=== PATIENT | male | born 1975 | race Caucasian/White ===

== ENCOUNTER 2020-04-19 18:23 | Inpatient (IN) | payer OTHER, SELFPAY ==
[~2020-04-19] VITALS: Ht 170.2 cm; Wt 106.9 kg
[2020-04-19] MEDS ORDERED: ZOSYN 3.375GM+NS 50ML 50 ML IV ONE (19:10)
[2020-04-19] MEDS ORDERED: TETANUS/DIPHTHERIA TOXOID [ADULT] 0.5 ML VIAL IM ONE (19:11)
[2020-04-19 19:16] LABS: BASOPHILS % (AUTO) 0.3 % (0.0-5.0); HEMATOCRIT 35.7 % (42-54); LYMPHOCYTES % (AUTO) 11.3 % (21.0-51.0); MEAN CORPUSCULAR HEMOGLOBIN 27.7 pg (27.0-33.0); MEAN CORPUSCULAR HGB CONC 33.6 g/dL (32.0-36.0); MEAN CORPUSCULAR VOLUME 82.4 fL (79-99); MONOCYTES % (AUTO) 10.4 % (3.0-13.0); NEUTROPHILS % (AUTO) 75.7 % (40.0-77.0); PLATELET COUNT (AUTO) 244 K/uL (130-400); RED BLOOD CELL COUNT(AUTO) 4.33 MIL/uL (4.50-6.20); RED CELL DISTRIBUTION WIDTH 11.8 % (11.0-15.5); WHITE BLOOD COUNT (AUTO) 11.1 K/uL (4.8-10.8)
[2020-04-19 19:24] LABS: INR 0.89 (0.85-1.15); PARTIAL THROMBOPLASTIN TIME 29.2 SEC (26.3-35.5); PROTHROMBIN TIME 9.7 SEC (9.6-11.6)
[2020-04-19 19:26] LABS: CARBON DIOXIDE 30 mmol/L (21-32); CHLORIDE 97 mmol/L (101-111); CREATININE 1.8 mg/dL (0.5-1.5); GLOMERULAR FILTR. RATE CALC 44 mL/min (>60); GLUCOSE,RANDOM 390 mg/dL (70-105); POTASSIUM 3.6 mmol/L (3.5-5.1); SODIUM SERUM 135 mmol/L (136-145); UREA NITROGEN, BLOOD 19 mg/dL (7-18)
[2020-04-19 19:36] LABS: ALANINE AMINOTRANSFERASE 42 U/L (12-78); ALBUMIN 2.7 g/dL (3.5-5.0); ASPARTATE AMINOTRANSFERASE 34 U/L (10-37); BILIRUBIN,TOTAL 0.4 mg/dL (0.2-1.0); CREATINE KINASE, TOTAL 234 U/L (21-232); MYOGLOBIN 214 ng/mL (10-92); TOTAL PROTEIN, SERUM 7.6 g/dL (6.0-8.3); TROPONIN I < 0.04 ng/mL (0.00-0.06)
[2020-04-19] MEDS ORDERED: VANCOMYCIN 1.5 GM in SODIUM CHLORIDE 0.9% 250 ML IV SCH (20:00)
[2020-04-19] MEDS ORDERED: ACETAMINOPHEN EXTRA STRENGTH 500 MG TABLET ONE (20:15)
[2020-04-19] MEDS ORDERED: ACETAMINOPHEN 325 MG TAB PO PRN (21:00)
[2020-04-19] MEDS ORDERED: VANCOMYCIN PROTOCOL PER PHARMACY IV SCH (21:00)
[2020-04-19] MEDS ORDERED: ONDANSETRON HCL 4 MG/2 ML VIAL IV PRN (21:00)
[2020-04-19] MEDS ORDERED: DEXTROSE 50%-WATER 50 ML DISP.SYRIN IV PRN (21:15)
[2020-04-19] MEDS ORDERED: GLUCAGON 1MG KIT 1 MG ML IM PRN (21:15)
[2020-04-19] MEDS ORDERED: HYDRALAZINE HCL 20 MG/ML VIAL ONE (22:16)
[2020-04-19] MEDS ORDERED: HEPARIN SODIUM 5000UNIT/ML 1ML VIAL SQ SCH (23:00)
[2020-04-19] MEDS: VANCOMYCIN 1.5 GM in SODIUM CHLORIDE 0.9% 250 ML IV SCH (23:02)
--- NOTE | 2020-04-19 23:05 | NUR ---
ADMIT PATIENT ADMITTED TO ROOM 222 TO RULE OUT COVID-19 AND FOR ULCER TO LEFT ANKLE. PATIENT [id number] ASSISTED TO BED FROM WHEELCHAIR. PATIENT ORIENTED TO ROOM AND HOSPITAL NO QUESTIONS OR CONCERNS AT THIS TIME.
[2020-04-19] MEDS: FAMOTIDINE/PF 20 MG/2 ML VIAL IV SCH (23:18)
[2020-04-19] MEDS: LACTATED RINGERS 1000ML 1,000 ML IV SCH (23:18)
[2020-04-19 23:20] LABS: APPEARANCE,URINE Cloudy (CLEAR); BILIRUBIN,URINE Negative (NEGATIVE); COLOR,URINE Yellow (YELLOW); GLUCOSE, URINE (UA) >=1000 mg/dL (NEGATIVE); KETONES,URINE Negative (NEGATIVE); LEUKOCYTE ESTERASE ,URINE Trace (NEGATIVE); NITRATE,URINE Negative (NEGATIVE); OCCULT BLOOD,URINE Large (NEGATIVE); PROTEIN,URINE 300 mg/dL (NEGATIVE)
[2020-04-19 23:34] VITALS: BP 155/96
[2020-04-19 23:34] LABS: AMORPHOUS SEDIMENT,UR Rare /LPF (None Seen); BACTERIA,URINE None Seen /HPF (None Seen); SQUAMOUS EPITHELIAL CELL,UR Rare /HPF (0-2); YEAST,URINE BUDDING Rare /HPF (None Seen)
[2020-04-20] VITALS (7 sets, daily range): BP systolic 136–193; BP diastolic 70–101
[2020-04-20] MEDS: ZOSYN 3.375GM+NS 50ML 50 ML IV SCH ×2 (03:41→11:03)
[2020-04-20] MEDS: GUAIFENESIN-DM 200/20 MG 10 ML PO PRN (04:04)
[2020-04-20] MEDS: HYDRALAZINE HCL 20 MG/ML VIAL IV PRN (04:04)
--- NOTE | 2020-04-20 04:15 | NUR ---
COVID-19 MANAGER PHARMACY NOTIFIED OF PATIENT'S NEGATIVE COVID-19 RESULT.
[2020-04-20] MEDS ORDERED: INSULIN HUMULIN R 100 UNIT/ML 3ML ONE (05:28)
[2020-04-20 05:54] LABS: BASOPHILS % (AUTO) 0.4 % (0.0-5.0); EOSINOPHILS % (AUTO) 0.3 % (0.0-8.0); HEMATOCRIT 29.7 % (42-54); LYMPHOCYTES % (AUTO) 7.8 % (21.0-51.0); MEAN CORPUSCULAR HGB CONC 33.7 g/dL (32.0-36.0); MEAN CORPUSCULAR VOLUME 83.2 fL (79-99); MONOCYTES % (AUTO) 10.3 % (3.0-13.0); NEUTROPHILS % (AUTO) 80.8 % (40.0-77.0); PLATELET COUNT (AUTO) 193 K/uL (130-400); RED BLOOD CELL COUNT(AUTO) 3.57 MIL/uL (4.50-6.20); RED CELL DISTRIBUTION WIDTH 11.9 % (11.0-15.5); WHITE BLOOD COUNT (AUTO) 11.6 K/uL (4.8-10.8)
[2020-04-20 06:03] LABS: ALBUMIN 2.2 g/dL (3.5-5.0); BILIRUBIN,TOTAL 0.6 mg/dL (0.2-1.0); POTASSIUM 3.2 mmol/L (3.5-5.1); TOTAL PROTEIN, SERUM 6.2 g/dL (6.0-8.3)
[2020-04-20 06:08] LABS: HEMOGLOBIN A1C 10.5 % (4.0-6.0)
[2020-04-20 06:13] LABS: CREATININE 1.5 mg/dL (0.5-1.5)
[2020-04-20] MEDS ORDERED: INSULIN HUMULIN R 100 UNIT/ML 3ML SQ SCH (07:30)
[2020-04-20] MEDS ORDERED: POTASSIUM CHLORIDE 20 MEQ ERTAB PO SCH (07:45)
[2020-04-20] MEDS: FAMOTIDINE/PF 20 MG/2 ML VIAL IV SCH ×2 (08:15→21:58)
[2020-04-20] MEDS: ACETAMINOPHEN 325 MG TAB PO PRN (08:15)
[2020-04-20] MEDS: LACTATED RINGERS 1000ML 1,000 ML IV SCH ×3 (09:19→17:38)
--- NOTE | 2020-04-20 09:44 | NUR ---
DR. SERNA IN ROOM ASSESSING/SPEAKING WITH PT. RE:PLAN OF CARE AND EVALUATING LEFT LATERAL MALLEOLUS.
[2020-04-20] MEDS: METOPROLOL TARTRATE 25 MG TAB PO SCH ×2 (10:12→21:58)
[2020-04-20] MEDS: LOSARTAN 50 MG TABLET PO SCH (10:12)
--- NOTE | 2020-04-20 10:17 | NUR ---
CALLED DR. GRANADOS'S OFFICE TO NOTIFY OF CONSULT. OFFICE STAFF PROVIDED DR. GRANADOS'S CELL PHONE NUMBER. NO RESPONSE WHEN NUMBER CALLED. WILL ATTEMPT TO NOTIFY LATER.
--- NOTE | 2020-04-20 10:26 | NUR ---
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 WILL NOTIFY WHEN INFORMATION AVAILABLE.
--- NOTE | 2020-04-20 10:50 | NUR ---
REPORT TO Erwin DOWD RN.
--- NOTE | 2020-04-20 11:14 | NUR ---
TRANSFERRED TO ROOM 430 WITH BELONGINGS VIA W/C, ACCOMPANIED BY BAIRON HERNANDEZ.
[2020-04-20] MEDS: INSULIN LISPRO 100 UNIT/ML 3ML SQ SCH ×5 (12:41→21:00)
[2020-04-20] MEDS: PHARMACY COMMUNICATION MISC SCH ×2 (13:30→17:30)
[2020-04-20] MEDS ORDERED: GADODIAMIDE 10 MMOL/20 ML VIAL IV ONE (14:01)
[2020-04-20] MEDS: CEFEPIME HCL 2 GM VIAL IVP SCH (17:33)
[2020-04-20] MEDS ORDERED: INSULIN GLARGINE 100 UNITS/ML 10 ML VIAL SQ SCH (21:00)
[2020-04-21] MEDS: CEFEPIME HCL 2 GM VIAL IVP SCH ×3 (01:22→16:49)
[2020-04-21] MEDS: LACTATED RINGERS 1000ML 1,000 ML IV SCH ×2 (01:24→06:49)
[2020-04-21 03:59] VITALS: BP 155/98
[2020-04-21 05:21] LABS: BASOPHILS % (AUTO) 0.4 % (0.0-5.0); EOSINOPHILS % (AUTO) 0.7 % (0.0-8.0); HEMATOCRIT 28.9 % (42-54); MEAN CORPUSCULAR HEMOGLOBIN 28.1 pg (27.0-33.0); MEAN CORPUSCULAR HGB CONC 32.9 g/dL (32.0-36.0); MEAN CORPUSCULAR VOLUME 85.5 fL (79-99); MONOCYTES % (AUTO) 11.1 % (3.0-13.0); NEUTROPHILS % (AUTO) 78.4 % (40.0-77.0); PLATELET COUNT (AUTO) 211 K/uL (130-400); RED BLOOD CELL COUNT(AUTO) 3.38 MIL/uL (4.50-6.20); WHITE BLOOD COUNT (AUTO) 11.1 K/uL (4.8-10.8)
[2020-04-21 06:06] LABS: MAGNESIUM 1.9 mg/dL (1.80-2.40); PHOSPHORUS 2.5 mg/dL (2.5-4.9)
[2020-04-21 06:38] LABS: CRP QUANTITATIVE 188.8 mg/L (0.00-9.0)
[2020-04-21] MEDS: INSULIN LISPRO 100 UNIT/ML 3ML SQ SCH ×7 (06:43→22:09)
[2020-04-21 07:24] VITALS: BP 180/97
[2020-04-21 07:24] LABS: ERYTHROCYTE SEDIMENTATION RATE 117 MM/HR (0-15)
--- NOTE | 2020-04-21 10:00 | NUR ---
EMA NOTE/IA MEET WITH PATIENT IN ROOM. PER PATIENT, LIVES WITH COMMON LAW , INDEPENDENT WITH ADLS, NO DME IN USE, DRIVES AND FEELS SAFE TO RETURN HOME ONCE DISCHARGED. Addendum: 04/21/20 at 1434 by YAN SHIRLEY RN CM Amended: Links added.
[2020-04-21] MEDS: FAMOTIDINE/PF 20 MG/2 ML VIAL IV SCH ×2 (10:12→20:24)
[2020-04-21] MEDS: LOSARTAN 50 MG TABLET PO SCH (10:12)
[2020-04-21] MEDS: METOPROLOL TARTRATE 25 MG TAB PO SCH ×2 (10:13→20:24)
[2020-04-21] MEDS: ENOXAPARIN SODIUM 30 MG/0.3 ML SQ SCH (10:13)
[2020-04-21] MEDS: GUAIFENESIN-DM 200/20 MG 10 ML PO PRN ×2 (10:13→16:56)
[2020-04-21] MEDS: ACETAMINOPHEN 325 MG TAB PO PRN ×2 (10:19→22:21)
[2020-04-21 10:42] VITALS: BP 185/98
[2020-04-21] MEDS ORDERED: COMPOUND IV REFRIGERATED 1 EACH IVSOLN MISC PRN (12:00)
[2020-04-21] MEDS: PHARMACY COMMUNICATION MISC SCH ×4 (13:45→21:30)
[2020-04-21 16:00] VITALS: BP 179/96
[2020-04-21] MEDS: HYDRALAZINE HCL 20 MG/ML VIAL IV PRN (17:14)
[2020-04-21 19:08] VITALS: BP 138/77
[2020-04-21] MEDS ORDERED: POTASSIUM CHLORIDE 20 MEQ ERTAB PO ONE (19:13)
[2020-04-21] MEDS ORDERED: LIDOCAINE HCL-MPF 1% 2ML VIAL IV PRN ×2 (19:15)
[2020-04-21] MEDS ORDERED: POTASSIUM CHLORIDE 20MEQ/100ML 100 ML IV PRN ×2 (19:15)
[2020-04-21] MEDS ORDERED: POTASSIUM CHLORIDE 10% ELIXIR 20 MEQ/15 ML UDCUP PO PRN (19:15)
[2020-04-21] MEDS: POTASSIUM CHLORIDE 20 MEQ ERTAB PO PRN ×2 (19:39→22:17)
[2020-04-21] MEDS: VANCOMYCIN 1.5 GM in SODIUM CHLORIDE 0.9% 250 ML IV SCH (20:27)
[2020-04-21] MEDS: INSULIN GLARGINE 100 UNITS/ML 10 ML VIAL SQ SCH (22:09)
[2020-04-21 23:03] VITALS: BP 142/77
[2020-04-22] VITALS (24 sets, daily range): BP systolic 130–196; BP diastolic 72–103
[2020-04-22] MEDS: CEFEPIME HCL 2 GM VIAL IVP SCH ×3 (00:59→16:17)
[2020-04-22] MEDS: PHARMACY COMMUNICATION MISC SCH ×4 (01:04→12:40)
[2020-04-22 04:13] LABS: BASOPHILS % (AUTO) 0.5 % (0.0-5.0); EOSINOPHILS % (AUTO) 6.7 % (0.0-8.0); HEMATOCRIT 27.9 % (42-54); LYMPHOCYTES % (AUTO) 17.4 % (21.0-51.0); MEAN CORPUSCULAR HEMOGLOBIN 28.1 pg (27.0-33.0); MEAN CORPUSCULAR VOLUME 85.3 fL (79-99); MONOCYTES % (AUTO) 11.4 % (3.0-13.0); NEUTROPHILS % (AUTO) 63.6 % (40.0-77.0); PLATELET COUNT (AUTO) 217 K/uL (130-400); RED BLOOD CELL COUNT(AUTO) 3.27 MIL/uL (4.50-6.20); RED CELL DISTRIBUTION WIDTH 12.3 % (11.0-15.5); WHITE BLOOD COUNT (AUTO) 7.7 K/uL (4.8-10.8)
[2020-04-22 04:39] LABS: CREATININE 1.3 mg/dL (0.5-1.5); POTASSIUM 3.4 mmol/L (3.5-5.1)
[2020-04-22] MEDS: INSULIN LISPRO 100 UNIT/ML 3ML SQ SCH ×7 (05:58→20:23)
[2020-04-22] MEDS: ENOXAPARIN SODIUM 30 MG/0.3 ML SQ SCH (09:00)
[2020-04-22] MEDS: FAMOTIDINE/PF 20 MG/2 ML VIAL IV SCH ×2 (09:45→20:34)
[2020-04-22] MEDS: LOSARTAN 50 MG TABLET PO SCH (09:46)
[2020-04-22] MEDS: METOPROLOL TARTRATE 25 MG TAB PO SCH ×2 (09:46→20:34)
[2020-04-22] MEDS ORDERED: MIDAZOLAM HCL 1 MG/ML 2ML VIAL ONE ×2 (11:37→12:17)
[2020-04-22] MEDS ORDERED: FENTANYL CITRATE PF 50 MCG/1 ML 2ML VIAL ONE ×2 (11:38→12:16)
[2020-04-22] MEDS ORDERED: PROPOFOL 10 MG/ML 20ML VIAL IV ONE (11:40)
[2020-04-22] MEDS ORDERED: SODIUM CHLORIDE 0.9% 1000ML 1,000 ML IV ONE (11:40)
[2020-04-22] MEDS ORDERED: LIDOCAINE HCL 1% 20 ML VIAL ONE (11:48)
[2020-04-22] MEDS ORDERED: BUPIVACAINE/PF 0.5% 10ML VIAL ONE (11:48)
[2020-04-22] MEDS ORDERED: LABETALOL HCL 5 MG/ML 20ML VIAL IV ONE (12:51)
[2020-04-22] MEDS: FUROSEMIDE 10 MG/ML 2ML VIAL IV SCH ×2 (16:17→23:24)
[2020-04-22] MEDS: ACETAMINOPHEN 325 MG TAB PO PRN (16:26)
[2020-04-22] MEDS: VANCOMYCIN 1.5 GM in SODIUM CHLORIDE 0.9% 250 ML IV SCH (20:37)
[2020-04-22] MEDS: INSULIN GLARGINE 100 UNITS/ML 10 ML VIAL SQ SCH (20:45)
[2020-04-23] MEDS: CEFEPIME HCL 2 GM VIAL IVP SCH ×3 (01:15→17:56)
[2020-04-23 04:00] VITALS: BP 141/76
[2020-04-23 06:28] LABS: BASOPHILS % (AUTO) 0.5 % (0.0-5.0); EOSINOPHILS % (AUTO) 7.3 % (0.0-8.0); LYMPHOCYTES % (AUTO) 14.5 % (21.0-51.0); MEAN CORPUSCULAR HEMOGLOBIN 28.2 pg (27.0-33.0); MEAN CORPUSCULAR HGB CONC 32.5 g/dL (32.0-36.0); MEAN CORPUSCULAR VOLUME 86.7 fL (79-99); MONOCYTES % (AUTO) 11.1 % (3.0-13.0); NEUTROPHILS % (AUTO) 66.1 % (40.0-77.0); PLATELET COUNT (AUTO) 295 K/uL (130-400); RED BLOOD CELL COUNT(AUTO) 3.23 MIL/uL (4.50-6.20); RED CELL DISTRIBUTION WIDTH 12.4 % (11.0-15.5); WHITE BLOOD COUNT (AUTO) 8.2 K/uL (4.8-10.8)
[2020-04-23] MEDS: INSULIN LISPRO 100 UNIT/ML 3ML SQ SCH ×7 (06:38→21:00)
[2020-04-23 06:43] LABS: CREATININE 1.3 mg/dL (0.5-1.5); CRP QUANTITATIVE 98.2 mg/L (0.00-9.0); POTASSIUM 3.4 mmol/L (3.5-5.1)
[2020-04-23] MEDS: FUROSEMIDE 10 MG/ML 2ML VIAL IV SCH ×3 (06:44→22:52)
[2020-04-23 08:15] VITALS: BP 182/93
[2020-04-23] MEDS: FAMOTIDINE/PF 20 MG/2 ML VIAL IV SCH ×2 (10:02→20:42)
[2020-04-23] MEDS: LOSARTAN 50 MG TABLET PO SCH (10:03)
[2020-04-23] MEDS: METOPROLOL TARTRATE 25 MG TAB PO SCH ×2 (10:03→20:41)
[2020-04-23] MEDS: ENOXAPARIN SODIUM 30 MG/0.3 ML SQ SCH (10:04)
[2020-04-23] MEDS: POTASSIUM CHLORIDE 20 MEQ ERTAB PO PRN ×2 (11:33→13:43)
[2020-04-23 12:01] VITALS: BP 181/95
[2020-04-23] MEDS: ACETAMINOPHEN 325 MG TAB PO PRN ×2 (13:42→16:47)
[2020-04-23 15:45] VITALS: BP 162/87
[2020-04-23 19:59] VITALS: BP 182/92
[2020-04-23 20:02] VITALS: BP 148/59
[2020-04-23] MEDS: VANCOMYCIN 1.5 GM in SODIUM CHLORIDE 0.9% 250 ML IV SCH (20:39)
[2020-04-23] MEDS: INSULIN GLARGINE 100 UNITS/ML 10 ML VIAL SQ SCH (21:00)
[2020-04-24] VITALS (9 sets, daily range): BP systolic 134–191; BP diastolic 78–99
[2020-04-24] MEDS: CEFEPIME HCL 2 GM VIAL IVP SCH ×2 (01:39→09:50)
[2020-04-24 04:03] LABS: BASOPHILS % (AUTO) 0.6 % (0.0-5.0); HEMATOCRIT 27.4 % (42-54); LYMPHOCYTES % (AUTO) 17.1 % (21.0-51.0); MEAN CORPUSCULAR HEMOGLOBIN 28.6 pg (27.0-33.0); MEAN CORPUSCULAR HGB CONC 33.6 g/dL (32.0-36.0); MEAN CORPUSCULAR VOLUME 85.1 fL (79-99); MONOCYTES % (AUTO) 10.7 % (3.0-13.0); NEUTROPHILS % (AUTO) 63.2 % (40.0-77.0); PLATELET COUNT (AUTO) 310 K/uL (130-400); RED BLOOD CELL COUNT(AUTO) 3.22 MIL/uL (4.50-6.20); RED CELL DISTRIBUTION WIDTH 12.2 % (11.0-15.5)
[2020-04-24 04:14] LABS: CREATININE 1.1 mg/dL (0.5-1.5); CRP QUANTITATIVE 69.1 mg/L (0.00-9.0); POTASSIUM 3.6 mmol/L (3.5-5.1)
[2020-04-24] MEDS: HYDRALAZINE HCL 20 MG/ML VIAL IV PRN (05:22)
[2020-04-24] MEDS: ACETAMINOPHEN 325 MG TAB PO PRN (05:31)
[2020-04-24] MEDS: INSULIN LISPRO 100 UNIT/ML 3ML SQ SCH ×7 (06:19→20:10)
[2020-04-24] MEDS: FUROSEMIDE 10 MG/ML 2ML VIAL IV SCH (06:34)
[2020-04-24] MEDS: FAMOTIDINE/PF 20 MG/2 ML VIAL IV SCH ×2 (09:50→20:09)
[2020-04-24] MEDS: LOSARTAN 50 MG TABLET PO SCH (09:50)
[2020-04-24] MEDS: METOPROLOL TARTRATE 25 MG TAB PO SCH ×2 (09:50→20:08)
[2020-04-24] MEDS: ENOXAPARIN SODIUM 30 MG/0.3 ML SQ SCH (09:51)
[2020-04-24] MEDS: VANCOMYCIN 1.5 GM in SODIUM CHLORIDE 0.9% 250 ML IV SCH (20:09)
[2020-04-24] MEDS: INSULIN GLARGINE 100 UNITS/ML 10 ML VIAL SQ SCH (20:14)
[2020-04-25] MEDS ORDERED: CLONIDINE HCL 0.1 MG TABLET ONE (03:35)
[2020-04-25 03:46] VITALS: BP 142/70
[2020-04-25 03:52] LABS: BASOPHILS % (AUTO) 0.6 % (0.0-5.0); EOSINOPHILS % (AUTO) 7.3 % (0.0-8.0); HEMATOCRIT 28.2 % (42-54); LYMPHOCYTES % (AUTO) 19.4 % (21.0-51.0); MEAN CORPUSCULAR HEMOGLOBIN 28.4 pg (27.0-33.0); MEAN CORPUSCULAR HGB CONC 32.6 g/dL (32.0-36.0); NEUTROPHILS % (AUTO) 61.2 % (40.0-77.0); PLATELET COUNT (AUTO) 316 K/uL (130-400); RED BLOOD CELL COUNT(AUTO) 3.24 MIL/uL (4.50-6.20); RED CELL DISTRIBUTION WIDTH 12.4 % (11.0-15.5); WHITE BLOOD COUNT (AUTO) 7.9 K/uL (4.8-10.8)
[2020-04-25 04:22] LABS: BILIRUBIN,TOTAL 0.3 mg/dL (0.2-1.0); CREATININE 1.2 mg/dL (0.5-1.5); POTASSIUM 3.6 mmol/L (3.5-5.1); TOTAL PROTEIN, SERUM 5.8 g/dL (6.0-8.3)
[2020-04-25] MEDS ORDERED: PHARMACY COMMUNICATION MISC SCH (04:30)
[2020-04-25] MEDS: INSULIN LISPRO 100 UNIT/ML 3ML SQ SCH ×7 (05:24→21:00)
[2020-04-25 07:42] VITALS: BP 152/84
[2020-04-25] MEDS: LOSARTAN 50 MG TABLET PO SCH (09:08)
[2020-04-25] MEDS: METOPROLOL TARTRATE 25 MG TAB PO SCH ×2 (09:08→21:28)
[2020-04-25] MEDS: POTASSIUM CHLORIDE 20 MEQ ERTAB PO PRN (09:09)
[2020-04-25] MEDS: FAMOTIDINE/PF 20 MG/2 ML VIAL IV SCH ×2 (09:09→21:28)
[2020-04-25] MEDS: ENOXAPARIN SODIUM 30 MG/0.3 ML SQ SCH (09:13)
[2020-04-25 11:32] VITALS: BP 137/85
--- NOTE | 2020-04-25 15:00 | NUR ---
DR. Thomas SERNA IN ROOM SPEAKING WITH PT. RE:PLAN OF CARE. QUESTIONS ANSWERED BY DR. SERNA.
--- NOTE | 2020-04-25 16:08 | NUR ---
[facility] CONSULT FOLLOW UP WOUND ASSESSEMENT: PATIENT WAS SEEN BY DR. JOSE EDUARDO HERRERA ON 04/22/20; CURRENT WOUND CARE ORDERS ALREADY IN CHART. Addendum: 04/25/20 at 1610 by MIKE PARSONS LVN Amended: Links added.
--- NOTE | 2020-04-25 16:10 | NUR ---
[facility] CONSULT FOLLOW UP WOUND ASSESSEMENT: PATIENT CURRENTLY UNDERGOING PROCEDURE WILL FOLLOW UP AT A LATER TIME. Addendum: 04/25/20 at 1611 by MIKE PARSONS LVN Amended: Links added.
[2020-04-25 16:19] VITALS: BP 172/80
--- NOTE | 2020-04-25 18:20 | NUR ---
WOUND CARE TO LEFT FOOT DONE ORDERED. PT. TOLERATED PROCEDURE WELL. CALL LIGHT WITHIN REACH. PT.'S SPOUSE AT BEDSIDE.
[2020-04-25 19:00] VITALS: BP 232/118
[2020-04-25] MEDS ORDERED: INSULIN GLARGINE 100 UNITS/ML 10 ML VIAL SQ SCH (21:00)
[2020-04-25] MEDS: MINOXIDIL 2.5 MG TAB PO SCH (21:28)
[2020-04-25] MEDS: VANCOMYCIN 1.5 GM in SODIUM CHLORIDE 0.9% 250 ML IV SCH (21:29)
[2020-04-25 23:00] VITALS: BP 150/82
[2020-04-25] MEDS: HYDRALAZINE HCL 20 MG/ML VIAL IV PRN (23:25)
[2020-04-26 03:00] VITALS: BP 126/65
[2020-04-26 05:27] LABS: BASOPHILS % (AUTO) 0.8 % (0.0-5.0); HEMATOCRIT 27.8 % (42-54); LYMPHOCYTES % (AUTO) 14.5 % (21.0-51.0); MEAN CORPUSCULAR HGB CONC 32.4 g/dL (32.0-36.0); MEAN CORPUSCULAR VOLUME 86.3 fL (79-99); MONOCYTES % (AUTO) 10.5 % (3.0-13.0); NEUTROPHILS % (AUTO) 68.6 % (40.0-77.0); PLATELET COUNT (AUTO) 342 K/uL (130-400); RED BLOOD CELL COUNT(AUTO) 3.22 MIL/uL (4.50-6.20); RED CELL DISTRIBUTION WIDTH 12.2 % (11.0-15.5); WHITE BLOOD COUNT (AUTO) 8.4 K/uL (4.8-10.8)
[2020-04-26 06:00] LABS: BILIRUBIN,TOTAL 0.3 mg/dL (0.2-1.0); CREATININE 1.5 mg/dL (0.5-1.5); CRP QUANTITATIVE 37.4 mg/L (0.00-9.0); MAGNESIUM 2.1 mg/dL (1.80-2.40); PHOSPHORUS 3.6 mg/dL (2.5-4.9); POTASSIUM 3.7 mmol/L (3.5-5.1); TOTAL PROTEIN, SERUM 5.9 g/dL (6.0-8.3)
[2020-04-26] MEDS: INSULIN LISPRO 100 UNIT/ML 3ML SQ SCH ×4 (06:34→11:56)
[2020-04-26 08:12] VITALS: BP 152/78
[2020-04-26] MEDS: MINOXIDIL 2.5 MG TAB PO SCH (08:34)
[2020-04-26] MEDS: LOSARTAN 50 MG TABLET PO SCH (08:34)
[2020-04-26] MEDS: METOPROLOL TARTRATE 25 MG TAB PO SCH (08:34)
[2020-04-26] MEDS: FAMOTIDINE/PF 20 MG/2 ML VIAL IV SCH (08:34)
[2020-04-26] MEDS: ACETAMINOPHEN 325 MG TAB PO PRN (08:37)
[2020-04-26] MEDS: ENOXAPARIN SODIUM 30 MG/0.3 ML SQ SCH (08:38)
[2020-04-26] MEDS ORDERED: METO100T14 PO (09:21)
[2020-04-26] MEDS ORDERED: MINO2.5 PO (09:21)
[2020-04-26] MEDS ORDERED: INSU100V SQ (09:21)
[2020-04-26] MEDS ORDERED: INSLAN SQ (09:21)
[2020-04-26] MEDS ORDERED: LOSA50TA2 PO (09:21)
[2020-04-26] MEDS ORDERED: DOXY-252 PO (09:22)
[2020-04-26 11:43] VITALS: BP 152/85
--- NOTE | 2020-04-26 13:40 | NUR ---
PT. STATES WILL DO ANKLE DRSG CHANGE AT HOME. TOO PAINFUL WHEN DONE HERE. HL REMOVED, CATHETER INTACT. DISCHARGE INSTRUCTIONS GIVEN, VERBALIZED UNDERSTANDING.
== END 2020-04-26 14:45 | disposition home or self-care (01) | DRG 853 ==
LOC: EDH 18:23 → EDHIP 18:24 → 2DH 22:52 → 4AH 04-20 11:27 → 3DH 04-22 01:17 → 4AH 04-22 01:34
PROVIDERS: ADMIT Internal Medicine; ATTEND Internal Medicine
PROC: 0JBR0ZZ Excision of Left Foot Subcutaneous Tissue and Fascia, Open Approach (ICD-10-PCS; principal; 2020-04-22 12:10)
DX: A41.9 Sepsis, unspecified organism (principal); I50.31 Acute diastolic (congestive) heart failure; L03.116 Cellulitis of left lower limb; N17.9 Acute kidney failure, unspecified; E87.1 Hypo-osmolality and hyponatremia; I13.0 Hypertensive heart and chronic kidney disease with heart failure and stage 1 through stage 4 chronic kidney disease, or unspecified chronic kidney disease; L97.329 Non-pressure chronic ulcer of left ankle with unspecified severity; L02.416 Cutaneous abscess of left lower limb; E11.65 Type 2 diabetes mellitus with hyperglycemia; Z68.36 Body mass index [BMI] 36.0-36.9, adult; E66.9 Obesity, unspecified; E78.5 Hyperlipidemia, unspecified; Z91.14 Patient's other noncompliance with medication regimen; I16.0 Hypertensive urgency; B95.62 Methicillin resistant Staphylococcus aureus infection as the cause of diseases classified elsewhere; E87.6 Hypokalemia; N18.3 Chronic kidney disease, stage 3 (moderate); E11.22 Type 2 diabetes mellitus with diabetic chronic kidney disease; D50.9 Iron deficiency anemia, unspecified; E11.628 Type 2 diabetes mellitus with other skin complications; J30.9 Allergic rhinitis, unspecified; E87.8 Other disorders of electrolyte and fluid balance, not elsewhere classified; W54.0XXA Bitten by dog, initial encounter; Z20.828 Contact with and (suspected) exposure to other viral communicable diseases
CPT/HCPCS: 36415; 71045; 73610; 73723; 80048; 80053; 80061; 80202; 81001; 82550; 82948; 83036; 83605; 83735; 83874; 83880; 84100; 84132; 84145; 84484; 85025; 85610; 85651; 85730; 86140; 87040; 87070; 87076; 87077; 87088; 87186; 87205; 87486; 87581; 87633; 87798; 90714; 93005; 93306; 93356; 93971; 99291; A6266; A9579; G0378; J0360; J0692; J1644; J1650; J1815; J1940; J2250; J2543; J2704; J3010; J3370; J3490; J7030; J7050; J7120